=== PATIENT | male | born 1965 | race Caucasian/White ===

== ENCOUNTER 2017-12-19 23:17 | Emergency (ER) | payer BC ==
[2017-12-19] MEDS ORDERED: CYCLOBENZAPRINE HCL 10 MG TAB PO ONE (23:43)
[2017-12-19] MEDS ORDERED: predniSONE 20 MG TAB PO ONE (23:43)
[2017-12-19] MEDS ORDERED: HYDROcodone 7.5MG/APAP 325MG 1 EA TAB PO ONE (23:43)
[2017-12-19] MEDS ORDERED: KETOROLAC TROMETHAMINE INJ 30 MG/ML VIAL IM ONE (23:43)
[2017-12-19 23:48] VITALS: TEMP 98.6
--- NOTE | 2017-12-19 23:55 | ED.PDOC ---
History of Present Illness - General Time Seen by Provider: 12/19/17 23:38 Source: patient Exam Limitations: no limitations - History of Present Illness Initial Comments: The patient is a 51-year-old male presenting to the emergency room secondary to the acute onset of back pain to his lower right back approximately from L2-L4 on the right. The patient was simply bending over pulling weeds when he felt a sharp stabbing pain. He has not had low back pain problems before. This occurred approximately 5 hours prior to arrival. He is having obvious muscle spasm in the paraspinal muscles. And he is having symptoms of sciatica extending down towards his anterior thigh. No weakness. No incontinence. No loss of sensation though he feels like the front of his thighs both sleep and burning. No skin changes. No gross deformity of the back. No obvious bruising. No laceration. Timing/Duration: 4-6 hours Severity: moderate Improving Factors: nothing Worsening Factors: movement Associated Symptoms: denies symptoms Allergies/Adverse Reactions: Allergies Penicillins Allergy (Mild, Verified 12/19/17 23:38) Home Medications: Ambulatory Orders Adinqzmapncca-Rqmv-Okresokrep [Fioricet] 1 ea PO Q8H PRN #21 tab 12/20/17 Cyclobenzaprine HCl [Flexeril] 5 mg PO TID PRN #30 tab 12/20/17 predniSONE [Prednisone] 20 mg PO DAILY #7 tab 12/20/17 Review of Systems - Review of Systems Constitutional: States: no symptoms reported EENTM: States: no symptoms reported Respiratory: States: no symptoms reported Cardiology: States: no symptoms reported Gastrointestinal/Abdominal: States: no symptoms reported Genitourinary: States: no symptoms reported Musculoskeletal: States: see HPI Skin: States: no symptoms reported Neurological: States: paresthesia Endocrine: States: no symptoms reported All other Systems: No Change from Baseline Past Medical History (General) - Patient Medical History Hx Seizures: No Hx Stroke: No Hx Dementia: No Hx Asthma: No Hx of COPD: No Hx Cardiac Disorders: No Hx Congestive Heart Failure: No Hx Pacemaker: No Hx Hypertension: Yes Hx Thyroid Disease: No Hx Diabetes: No Hx Gastroesophageal Reflux: No Hx Renal Disease: No Hx Cancer: No Hx of HIV: No Hx Hepatitis C: No Hx MRSA: No - Vaccination History Hx Tetanus, Diphtheria Vaccination: No Hx Influenza Vaccination: No Hx Pneumococcal Vaccination: No Immunizations Up to Date: No - Social History Hx Tobacco Use: No Hx Chewing Tobacco Use: No Hx Alcohol Use: Yes Hx Substance Use: No Hx Substance Use Treatment: No Hx Depression: No Feels Threatened In Home Enviroment: No Feels Threatened In a Relationship: No Hx Physical Abuse: No Hx Emotional Abuse: No Hx Suspected Abuse: No - Triage Comment ED Triage Comment: Pt cooperative and c/o pain in R leg No wound Physical Exam - Physical Exam General Appearance: Alert, Anxious Eye Exam: bilateral normal Ears, Nose, Throat: hearing grossly normal, normal ENT inspection Neck: full range of motion, supple Respiratory: no respiratory distress, no accessory muscle use Cardiovascular/Chest: normal peripheral pulses, no edema, tachycardia - but the patient is in pain Peripheral Pulses: radial,right: 2+, radial,left: 2+, dorsalis pedis,right: 2+, dorsalis pedis,left: 2+ Gastrointestinal/Abdominal: non tender, soft Rectal Exam: deferred Back Exam: muscle spasm, other - see history of present illness Extremity: normal range of motion, non-tender, normal inspection, no pedal edema , no calf tenderness, normal capillary refill 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 Skin Exam: normal color Comments: Vital Signs - 24 hr 12/19/17 23:17 Temperature 98.6 F Pulse Rate [ 127 H Apical] Respiratory 20 Rate Blood Pressure 163/121 [Left Arm] O2 Sat by Pulse 98 Oximetry Progress - Progress Progress: 12/19/17 23:56 the patient is a 51-year-old male presenting with acute onset right sided low back pain with associated sciatica towards his anterior right thigh. No obvious weakness and no incontinence. There is no history of any significant trauma. The patient has obvious paraspinal muscle spasm. The patient is going to be placed on one week of oral prednisone along with Flexeril as a muscle relaxer and Fioricet as needed for additional pain control. He does need to use a heat pad. He also needs to do stretching exercises. If his pain is significantly persisting past 3-4 days then a repeat evaluation with his primary care doctor may be warranted including additional imaging as dictated by the exam. Imaging does not appear warranted at this time given his clinical presentation and history. ER warnings were given for significant worsening. Departure - Departure Clinical Impression: Acute low back pain Qualifiers: Back pain laterality: right Sciatica presence: with sciatica Sciatica laterality: sciatica of right side Qualified Code(s): M54.41 - Lumbago with sciatica, right side Disposition: Discharge to Home or Self Care Condition: Fair Instructions: DI for Low Back Pain Diet: regular diet Activity: increase activity as tolerated Referrals: Sulaiman Price MD [Primary Care Provider] - 1-2 Weeks Prescriptions: Viheohhybmzpm-Agzw-Paxrocgvmi [Fioricet] 1 ea PO Q8H PRN #21 tab PRN Reason: Pain Cyclobenzaprine HCl [Flexeril] 5 mg PO TID PRN #30 tab PRN Reason: Muscle Spasms predniSONE [Prednisone] 20 mg PO DAILY #7 tab Home Medications: Ambulatory Orders Staicujsupoqi-Pini-Nuhzlkbxuo [Fioricet] 1 ea PO Q8H PRN #21 tab 12/20/17 Cyclobenzaprine HCl [Flexeril] 5 mg PO TID PRN #30 tab 12/20/17 predniSONE [Prednisone] 20 mg PO DAILY #7 tab 12/20/17 Additional Instructions: the patient is a 51-year-old male presenting with acute onset right sided low back pain with associated sciatica towards his anterior right thigh. No obvious weakness and no incontinence. There is no history of any significant trauma. The patient has obvious paraspinal muscle spasm. The patient is going to be placed on one week of oral prednisone along with Flexeril as a muscle relaxer and Fioricet as needed for additional pain control. He does need to use a heat pad. He also needs to do stretching exercises. If his pain is significantly persisting past 3-4 days then a repeat evaluation with his primary care doctor may be warranted including additional imaging as dictated by the exam. Imaging does not appear warranted at this time given his clinical presentation and history. ER warnings were given for significant worsening. The patient's blood pressure and pulse are elevated here today but are both consistent with significant discomfort. These do need to be followed with his primary care doctor to make sure they normalize with resolution of his pain over time.
[2017-12-20 00:18] VITALS: BP 165/117; O2SAT 100
== END 2017-12-20 00:15 | disposition home or self-care (01) ==
LOC: ER 23:17
DX: M54.41 Lumbago with sciatica, right side (principal); I10 Essential (primary) hypertension
CPT/HCPCS: J1885; J7512

== ENCOUNTER 2018-05-30 04:18 | Emergency (ER) | payer BC ==
[2018-05-30 04:45] VITALS: BP 162/88; TEMP 97.8; O2SAT 99
[2018-05-30] MEDS ORDERED: ACETAMINOPHEN W/COD #3 TAB (ER Disp) PO ONE (04:58)
--- NOTE | 2018-05-30 04:58 | ED.PDOC ---
History of Present Illness - General Chief Complaint: Back Pain or Injury Stated Complaint: chronic back pain Time Seen by Provider: 05/30/18 04:45 Source: patient Exam Limitations: no limitations - History of Present Illness Initial Comments: Patient is concerned he is withdrawing from running out of his Lortab & is wanting me to give him some. Timing/Duration: 24 hours Severity: moderate Improving Factors: nothing Worsening Factors: nothing Associated Symptoms: other - chronic back pain Allergies/Adverse Reactions: Allergies Penicillins Allergy (Mild, Verified 12/19/17 23:38) Home Medications: Ambulatory Orders Wwuzloilwnnnm-Ugxo-Chszhlriwi [Fioricet] 1 ea PO Q8H PRN #21 tab 12/20/17 Cyclobenzaprine HCl [Flexeril] 5 mg PO TID PRN #30 tab 12/20/17 predniSONE [Prednisone] 20 mg PO DAILY #7 tab 12/20/17 Review of Systems - Review of Systems Constitutional: States: no symptoms reported EENTM: States: no symptoms reported Respiratory: States: no symptoms reported Cardiology: States: no symptoms reported Gastrointestinal/Abdominal: States: no symptoms reported Genitourinary: States: no symptoms reported Musculoskeletal: States: back pain Skin: States: no symptoms reported Neurological: States: anxiety Past Medical History (General) - Patient Medical History Hx Seizures: No Hx Stroke: No Hx Dementia: No Hx Asthma: No Hx of COPD: No Hx Cardiac Disorders: No Hx Congestive Heart Failure: Yes Hx Pacemaker: No Hx Hypertension: Yes Hx Thyroid Disease: No Hx Diabetes: No Hx Gastroesophageal Reflux: No Hx Renal Disease: No Hx Cancer: No Hx of HIV: No Hx Hepatitis C: No Hx MRSA: No - Vaccination History Hx Tetanus, Diphtheria Vaccination: No Hx Influenza Vaccination: No Hx Pneumococcal Vaccination: No - Social History Hx Tobacco Use: No Hx Chewing Tobacco Use: No Hx Alcohol Use: Yes - occ Hx Substance Use: No Hx Substance Use Treatment: No Hx Depression: No Hx Physical Abuse: No Hx Emotional Abuse: No Hx Suspected Abuse: No - Triage Comment ED Triage Comment: PT reports he has chronic back for which he takes Rx pain meds. He took his last doses yesterday morning and now having withdrawals. He stated he needs something to help hime get some relief. Pt concerned about numbness to his lower extremeties. Report he has a herniated disc. Took his last hydrocodone yesterd morning about 10a.m. Unable to get Rx filled until next week. Family Medical History - Family History Mother Living Status: Cause of : Cancer Physical Exam - Physical Exam General Appearance: Alert, Anxious, No apparent distress Ears, Nose, Throat: hearing grossly normal Neck: supple, normal inspection Respiratory: no respiratory distress, no accessory muscle use Cardiovascular/Chest: tachycardia Extremity: other - no tremor Neurologic: alert, oriented x 3 Skin Exam: normal color, warm/dry Departure - Departure Clinical Impression: Withdrawal complaint, Chronic pain Time of Disposition: 04:56 Disposition: Discharge to Home or Self Care Condition: Fair Departure Forms: ED Discharge - Pt. Copy, Patient Portal Self Enrollment Instructions: DI for Low Back Pain, Chronic Pain (DC), Prescription Drug Abuse (DC) Referrals: Gary Velasquez MD [Primary Care Provider] - 05/31/18 Home Medications: Ambulatory Orders Zirzxstqvhdxd-Lrpo-Spbijugmlo [Fioricet] 1 ea PO Q8H PRN #21 tab 12/20/17 Cyclobenzaprine HCl [Flexeril] 5 mg PO TID PRN #30 tab 12/20/17 predniSONE [Prednisone] 20 mg PO DAILY #7 tab 12/20/17
== END 2018-05-30 05:11 | disposition home or self-care (01) ==
LOC: ER 04:18
DX: F11.23 Opioid dependence with withdrawal (principal); G89.29 Other chronic pain; M54.5 Low back pain; I50.9 Heart failure, unspecified; I11.0 Hypertensive heart disease with heart failure; Z79.899 Other long term (current) drug therapy

== ENCOUNTER 2018-06-23 20:52 | Emergency (ER) | payer BC ==
[2018-06-23 21:15] VITALS: TEMP 97.3
--- NOTE | 2018-06-23 21:21 | ED.PDOC ---
History of Present Illness - General Chief Complaint: Back Pain or Injury Stated Complaint: back pain Time Seen by Provider: 06/23/18 21:18 Source: patient Exam Limitations: no limitations - History of Present Illness Initial Comments: Pt has chronic back pain. He was fired by his pain doctor and has been out of [employer] 3-4 days Timing/Duration: other - 48 hrs Severity: severe Improving Factors: nothing Worsening Factors: nothing Associated Symptoms: nausea/vomiting, weakness Allergies/Adverse Reactions: Allergies Penicillins Allergy (Mild, Verified 12/19/17 23:38) Home Medications: Ambulatory Orders Rlgdrrirhelov-Bieb-Ocxmwmfjpy [Fioricet] 1 ea PO Q8H PRN #21 tab 12/20/17 Cyclobenzaprine HCl [Flexeril] 5 mg PO TID PRN #30 tab 12/20/17 predniSONE [Prednisone] 20 mg PO DAILY #7 tab 12/20/17 Clonidine HCl 0.1 mg TD TID #15 ml 06/23/18 Gabapentin 300 mg PO TID #30 cap 06/23/18 Hydroxyzine HCl 50 mg PO BEDTIME PRN #20 tab 06/23/18 Tramadol HCl 50 mg PO Q6HR PRN #15 tab 06/23/18 Review of Systems - Review of Systems Constitutional: States: malaise, weakness EENTM: States: no symptoms reported Respiratory: States: no symptoms reported Cardiology: States: no symptoms reported Gastrointestinal/Abdominal: States: abdominal pain, diarrhea, nausea Genitourinary: States: no symptoms reported Skin: States: no symptoms reported Neurological: States: anxiety, tremors, weakness Endocrine: States: no symptoms reported Hematologic/Lymphatic: States: no symptoms reported Past Medical History (General) - Patient Medical History Hx Seizures: No Hx Stroke: No Hx Dementia: No Hx Asthma: No Hx of COPD: No Hx Cardiac Disorders: No Hx Congestive Heart Failure: Yes Hx Pacemaker: No Hx Hypertension: Yes Hx Thyroid Disease: No Hx Diabetes: Yes Hx Gastroesophageal Reflux: No Hx Renal Disease: No Hx Cancer: No Hx of HIV: No Hx Hepatitis C: No Hx MRSA: No Surgical History: no surgical history - Vaccination History Hx Tetanus, Diphtheria Vaccination: No Hx Influenza Vaccination: No Hx Pneumococcal Vaccination: No - Social History Hx Tobacco Use: No Hx Chewing Tobacco Use: No Hx Alcohol Use: Yes - beers Hx Substance Use: Yes - Rx narcotics Hx Substance Use Treatment: Yes Hx Depression: Yes Hx Physical Abuse: No Hx Emotional Abuse: No Hx Suspected Abuse: No - Triage Comment ED Triage Comment: Pt reports having back pain, chronic. Pt also stated he is having diarrhea. Pt confesses he is having withdrawals. Pt PCP stopped his pain medications and now he feels he is withdrawing. Pt anxious and crying, "I don't know what to do. I can get comfortable, I can't sleep". Family Medical History - Family History Mother Living Status: Cause of : Cancer Physical Exam - Physical Exam General Appearance: Agitated, Alert, Obvious distress Eye Exam: bilateral normal Ears, Nose, Throat: hearing grossly normal, normal ENT inspection, normal pharynx Neck: full range of motion, supple Respiratory: chest non-tender, lungs clear, normal breath sounds, no respiratory distress Cardiovascular/Chest: normal peripheral pulses, no edema, tachycardia Gastrointestinal/Abdominal: normal bowel sounds, non tender, soft Back Exam: normal inspection, no CVA tenderness, decreased range of motion Extremity: normal range of motion, non-tender, normal inspection Neurologic: no motor/sensory deficits, alert, normal mood/affect, oriented x 3 Skin Exam: normal color, warm/dry Lymphatic: no adenopathy Departure - Departure Clinical Impression: Narcotic dependence Chronic back pain Qualifiers: Back pain location: low back pain Back pain laterality: bilateral Sciatica presence: without sciatica Qualified Code(s): M54.5 - Low back pain; G89.29 - Other chronic pain; G89.29 - Other chronic pain Disposition: Discharge to Home or Self Care Condition: Good Departure Forms: ED Discharge - Pt. Copy, Patient Portal Self Enrollment Referrals: Gary Velasquez MD [Primary Care Provider] - 1-2 Weeks Prescriptions: Tramadol HCl 50 mg PO Q6HR PRN #15 tab PRN Reason: Pain Clonidine HCl 0.1 mg TD TID #15 ml Gabapentin 300 mg PO TID #30 cap Hydroxyzine HCl 50 mg PO BEDTIME PRN #20 tab PRN Reason: Insomnia Home Medications: Ambulatory Orders Ftwdlwdkutnph-Usqt-Zsfgfnjbbu [Fioricet] 1 ea PO Q8H PRN #21 tab 12/20/17 Cyclobenzaprine HCl [Flexeril] 5 mg PO TID PRN #30 tab 12/20/17 predniSONE [Prednisone] 20 mg PO DAILY #7 tab 12/20/17 Clonidine HCl 0.1 mg TD TID #15 ml 06/23/18 Gabapentin 300 mg PO TID #30 cap 06/23/18 Hydroxyzine HCl 50 mg PO BEDTIME PRN #20 tab 06/23/18 Tramadol HCl 50 mg PO Q6HR PRN #15 tab 06/23/18
[2018-06-23] MEDS ORDERED: HYDROcodone 10MG/APAP 325MG 1 EA TAB PO ONE (21:34)
[2018-06-23] MEDS ORDERED: hydrOXYzine HCl 25 MG TAB PO ONE (21:46)
[2018-06-23 22:01] VITALS: BP 155/91; O2SAT 100
== END 2018-06-23 22:02 | disposition home or self-care (01) ==
LOC: ER 20:52
DX: M54.5 Low back pain (principal); G89.29 Other chronic pain; F11.20 Opioid dependence, uncomplicated; R19.7 Diarrhea, unspecified; F32.9 Major depressive disorder, single episode, unspecified; E11.9 Type 2 diabetes mellitus without complications; I11.0 Hypertensive heart disease with heart failure; I50.9 Heart failure, unspecified; Z88.0 Allergy status to penicillin

== ENCOUNTER → 2018-10-04 | Outpatient (CLI) | payer BC | LOC: GMAH 10:55 | PROVIDERS: ATTEND Family Medicine | DX: F52.21 Male erectile disorder (principal) ==

== ENCOUNTER → 2019-04-05 | Outpatient (CLI) | payer BC | LOC: GMAH 10:33 | PROVIDERS: ATTEND Family Medicine | DX: E29.1 Testicular hypofunction (principal) ==

== ENCOUNTER → 2019-05-16 | Outpatient (CLI) | payer BC | LOC: GMA MATASK 14:09 | PROVIDERS: ATTEND Family Medicine | DX: E29.1 Testicular hypofunction (principal) ==

== ENCOUNTER → 2019-09-01 | Outpatient (CLI) | payer BC ==
--- NOTE | 2019-09-01 13:38 | MRI ---
EXAM DESCRIPTION: Hip,Left CLINICAL HISTORY: PAIN IN LEFT HIP COMPARISON: None Available. TECHNIQUE: MRI of the left hip is performed according to our usual protocol with multiplanar multi sequence imaging. No intravenous contrast. FINDINGS: Bones and joints: Moderate to severe left hip osteoarthrosis with subcortical cystic changes and bulky osteophyte formation . Asymmetric increase left femoral head subcortical bone marrow edema (when compared to the right femoral head) with associated more linear low T1 line (Series 301 image eight) consistent with small nondisplaced subchondral fracture. There is full-thickness cartilage loss along the left hip articular weightbearing surface. Partially imaged moderate right hip osteoarthrosis with degenerative tearing of the acetabular labrum. Labrum: Severe diffuse degenerative tearing of the acetabular labrum, more pronounced along the anterior and superior labrum. Exophytic cystic structure adjacent to the degenerated chondral labral complex measures 1.6 cm and may represent a complicated para labral cysts (containing low signal mineralization). There is associated adjacent edema/joint capsule inflammation. Tendons and ligaments: The gluteus medius and minimus tendons and their attachment sites onto the greater trochanter facets are intact. The proximal common hamstring tendons are intact. Soft tissues: No significant trochanteric or iliopsoas bursitis. IMPRESSION: 1. Left femoral head small subchondral fracture. 2. Moderate to severe left hip osteoarthrosis with areas of full-thickness cartilage loss. 3. 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 4. Partially imaged moderate right hip osteoarthrosis and degenerative right acetabulum labral tears. Electronically signed by: Nile Phillip DO 09/01/2019 1:37 PM [employer]
== END ==
LOC: MRI 10:01
PROVIDERS: ATTEND Family Medicine
DX: S72.092A Other fracture of head and neck of left femur, initial encounter for closed fracture (principal); S73.192A Other sprain of left hip, initial encounter; S73.191A Other sprain of right hip, initial encounter; M16.12 Unilateral primary osteoarthritis, left hip; M16.11 Unilateral primary osteoarthritis, right hip; M71.352 Other bursal cyst, left hip; R60.0 Localized edema

== ENCOUNTER → 2020-06-18 | Outpatient (CLI) | payer OTHER | LOC: GMA MATASK 16:53 | PROVIDERS: ATTEND Family Medicine | DX: Z00.00 Encounter for general adult medical examination without abnormal findings (principal); E11.9 Type 2 diabetes mellitus without complications ==

== ENCOUNTER 2020-08-15 10:19 | Inpatient (IN) | payer OTHER ==
[2020-08-15] MEDS ORDERED: SODIUM CHLORIDE 0.9% 1000ML 1,000 ML IVS ONE (10:57)
[2020-08-15] MEDS ORDERED: ASPIRIN (CHEWABLE) 81 MG TAB PO ONE (10:57)
--- NOTE | 2020-08-15 11:02 | ED.PDOC ---
History of Present Illness - General Chief Complaint: Respiratory Problem Stated Complaint: weakness, difficulty breathing Time Seen by Provider: 08/15/20 10:53 - History of Present Illness Initial Comments: 54 yo M PMH HTN 'Borderline Diabetes' and COVID+ 8 days ago presents to ED c/o worsening cough sob chest pain since diagnosis. Denies fever admits cough sob denies recent travel. Denies fever chills nausea vomiting admits diarrhea no blood admits chest pain heaviness sob denies diaphoresis no change in diet rest or bladder admits drinking denies smoking has PMD for follow up no other c/o today. PPE worn-N95 surgical mask with attached face shield over N95 gloves and face shield over that Allergies/Adverse Reactions: Allergies Penicillins Allergy (Mild, Verified 12/19/17 23:38) Home Medications: Ambulatory Orders Icxunhapytmol-Ansa-Thudzxtewm [Fioricet] 1 ea PO Q8H PRN #21 tab 12/20/17 Cyclobenzaprine HCl [Flexeril] 5 mg PO TID PRN #30 tab 12/20/17 predniSONE [Prednisone] 20 mg PO DAILY #7 tab 12/20/17 Clonidine [Clonidine HCl] 0.1 mg TD TID #15 ml 06/23/18 Gabapentin 300 mg PO TID #30 cap 06/23/18 Hydroxyzine HCl 50 mg PO BEDTIME PRN #20 tab 06/23/18 Tramadol HCl 50 mg PO Q6HR PRN #15 tab 06/23/18 Review of Systems - Review of Systems Constitutional: States: see HPI EENTM: States: see HPI Respiratory: States: see HPI Cardiology: States: see HPI Gastrointestinal/Abdominal: States: see HPI Genitourinary: States: see HPI Musculoskeletal: States: see HPI Skin: States: see HPI Neurological: States: see HPI Endocrine: States: see HPI All other Systems: Reviewed and Negative Past Medical History (General) - Patient Medical History Hx Seizures: No Hx Stroke: No Hx Dementia: No Hx Asthma: No Hx of COPD: No Hx Cardiac Disorders: No Hx Congestive Heart Failure: No Hx Pacemaker: No Hx Hypertension: Yes Hx Thyroid Disease: No Hx Diabetes: No Hx Gastroesophageal Reflux: No Hx Renal Disease: No Hx Cancer: No Hx of HIV: No Hx Hepatitis C: No Hx MRSA: No - Vaccination History Hx Tetanus, Diphtheria Vaccination: No Hx Influenza Vaccination: No Hx Pneumococcal Vaccination: No - Social History Hx Tobacco Use: No Hx Chewing Tobacco Use: No Hx Alcohol Use: Yes - beers Hx Substance Use: Yes - Rx narcotics Hx Substance Use Treatment: Yes Hx Depression: Yes Hx Physical Abuse: No Hx Emotional Abuse: No Hx Suspected Abuse: No Family Medical History - Family History Mother Living Status: Cause of : Cancer Physical Exam - Physical Exam General Appearance: No apparent distress Eye Exam: bilateral normal Ears, Nose, Throat: normal ENT inspection Neck: full range of motion Respiratory: no respiratory distress Cardiovascular/Chest: regular rate, rhythm, tachycardia Gastrointestinal/Abdominal: non tender, soft Rectal Exam: deferred Extremity: normal range of motion Neurologic: no motor/sensory deficits Skin Exam: normal color Progress - Progress Progress: 08/15/20 11:03 A/P-Chest Pain SOB COVID+ Cough Tachycardia Dehydration-iv asa central office repairer pulse ox ekg cxr cbc cmp trop cta chest reassess EKG-non specific TW changes Sinus Tachycardia 125bpm Pt. finished course of steroids and antibiotics 08/15/20 12:37 Laboratory Tests 08/15/20 08/15/20 08/15/20 11:20 11:20 11:20 WBC 11.1 H RBC 6.30 H Hgb 18.4 H Hct 52.5 H MCV 83.3 MCH 29.2 MCHC 35.1 RDW 14.1 Plt Count 190 MPV 8.9 Absolute Neuts (auto) 8.30 H Absolute Lymphs (auto) 1.60 Absolute Monos (auto) 1.10 H Absolute Eos (auto) 0.00 Absolute Basos (auto) 0.10 Neutrophils % 74.4 Lymphocytes % 14.4 L Monocytes % 9.8 H Eosinophils % 0.4 L Basophils % 1.0 Sodium 126 L Potassium 4.2 Chloride 88 L Carbon Dioxide 21 Anion Gap 21.2 H BUN 37 H Creatinine 1.62 H BUN/Creatinine Ratio 22.8 H Random Glucose 370 H Serum Osmolality 277.1 Calcium 9.6 Total Bilirubin 1.2 H AST 34 ALT 44 Alkaline Phosphatase 71 Troponin I 0.02 Serum Total Protein 7.1 Albumin 4.2 Globulin 2.9 Albumin/Globulin Ratio 1.4 Urine Color Urine Appearance Urine pH Ur Specific [place] Urine Protein Urine Glucose (UA) Urine Ketones Urine Blood Urine Nitrite Urine Bilirubin Urine Urobilinogen Ur Leukocyte Esterase Urine RBC Urine WBC Ur Epithelial Cells Urine Bacteria 08/15/20 11:20 WBC RBC Hgb Hct MCV MCH MCHC RDW Plt Count MPV Absolute Neuts (auto) Absolute Lymphs (auto) Absolute Monos (auto) Absolute Eos (auto) Absolute Basos (auto) Neutrophils % Lymphocytes % Monocytes % Eosinophils % Basophils % Sodium Potassium Chloride Carbon Dioxide Anion Gap BUN Creatinine BUN/Creatinine Ratio Random Glucose Serum Osmolality Calcium Total Bilirubin AST ALT Alkaline Phosphatase Troponin I Serum Total Protein Albumin Globulin Albumin/Globulin Ratio Urine Color Yellow Urine Appearance Clear Urine pH 5.5 Ur Specific [place] 1.015 Urine Protein 100 H Urine Glucose (UA) 500 H Urine Ketones Negative Urine Blood Small H Urine Nitrite Negative Urine Bilirubin Negative Urine Urobilinogen 0.2 Ur Leukocyte Esterase Negative Urine RBC 0 Urine WBC 0-1 Ur Epithelial Cells 1-3 Urine Bacteria 0 Add Dx-Hyponatremia Acute Renal Failure Hyperglycemia Pneumonia EXAM DESCRIPTION: CTA Chest CLINICAL HISTORY: r/ PE chest pain, shortness of breath COMPARISON: None. TECHNIQUE: Postcontrast CT images of the chest are obtained using pulmonary embolism imaging protocol. Three-D MIP reconstructed images of the arterial vasculature are obtained. Coronal and sagittal reconstructed images of the also provided. This exam was performed according to our departmental dose-optimization program, which includes automated exposure control, adjustment of the mA and/or kV according to patient size and/or use of iterative reconstruction technique . FINDINGS: Heart is mildly enlarged. Coronary arteries show mild calcifications. Thoracic aorta shows no aneurysmal dilatation or dissection. No filling defects or emboli are seen in the pulmonary arteries. No pleural or pericardial effusion. Heterogeneous decreased attenuation of the visualized liver suggest diffuse fatty infiltration. Lungs are normally aerated. Mild areas of groundglass attenuation and alveolar infiltrates are seen predominantly in the right lower lobe and to a lesser degree posterior mid left upper lobe. Mild areas of groundglass attenuation in the lungs bilaterally. Breathing motion artifact somewhat limits detailed evaluation. Osseous structures show no aggressive bony lesions. Spond ylitic changes of the spine are seen. Bridging marginal endplate osteophytes over multiple level suggests DISH. IMPRESSION: No CT evidence of pulmonary embolism. Mild bilateral pulmonary infiltrates are seen compatible with pneumonia. Commonly reported imaging features of COVID-19 pneumonia are present. Other processes such as influenza pneumonia and organizing pneumonia, as can be seen with drug toxicity and connective tissue disease, can cause similar imaging pattern. [PneTyp] Diffuse fatty infiltration of the liver seen. Electronically signed by: Edmond Dietrich MD 08/15/2020 12:38 PM [employer] 08/15/20 13:00 Spoke to Christopher Reid accepts admission Departure - Departure Clinical Impression: Pneumonia due to COVID-19 virus, SOB (shortness of breath), Cough, Hyponatremia, Hyperglycemia Chest pain Qualifiers: Chest pain type: unspecified Qualified Code(s): R07.9 - Chest pain, unspecified Time of Disposition: 13:04 Disposition: Admit Patient Condition: Fair Departure Forms: ED Discharge - Pt. Copy, Patient Portal Self Enrollment Referrals: Reinier De Luna MD [Primary Care Provider] - 1-2 Days Home Medications: Ambulatory Orders Pwwdukcnjgzkr-Aimq-Uenizoaorf [Fioricet] 1 ea PO Q8H PRN #21 tab 12/20/17 Cyclobenzaprine HCl [Flexeril] 5 mg PO TID PRN #30 tab 12/20/17 predniSONE [Prednisone] 20 mg PO DAILY #7 tab 12/20/17 Clonidine [Clonidine HCl] 0.1 mg TD TID #15 ml 06/23/18 Gabapentin 300 mg PO TID #30 cap 06/23/18 Hydroxyzine HCl 50 mg PO BEDTIME PRN #20 tab 06/23/18 Tramadol HCl 50 mg PO Q6HR PRN #15 tab 06/23/18 Decision To Admit - Decistion To Admit Decision to Admit Reason: Admit from ER Decision to Admit Date: 08/15/20 Decision to Admit Time: 13:05
--- NOTE | 2020-08-15 12:40 | CT ---
EXAM DESCRIPTION: CTA Chest CLINICAL HISTORY: r/ PE chest pain, shortness of breath COMPARISON: None. TECHNIQUE: Postcontrast CT images of the chest are obtained using pulmonary embolism imaging protocol. Three-D MIP reconstructed images of the arterial vasculature are obtained. Coronal and sagittal reconstructed images of the also provided. This exam was performed according to our departmental dose-optimization program, which includes automated exposure control, adjustment of the mA and/or kV according to patient size and/or use of iterative reconstruction technique . FINDINGS: Heart is mildly enlarged. Coronary arteries show mild calcifications. Thoracic aorta shows no aneurysmal dilatation or dissection. No filling defects or emboli are seen in the pulmonary arteries. No pleural or pericardial effusion. Heterogeneous decreased attenuation of the visualized liver suggest diffuse fatty infiltration. Lungs are normally aerated. Mild areas of groundglass attenuation and alveolar infiltrates are seen predominantly in the right lower lobe and to a lesser degree posterior mid left upper lobe. Mild areas of groundglass attenuation in the lungs bilaterally. Breathing motion artifact somewhat limits detailed evaluation. Osseous structures show no aggressive bony lesions. Spondylitic changes of the spine are seen. Bridging marginal endplate osteophytes over multiple level suggests DISH. IMPRESSION: No CT evidence of pulmonary embolism. Mild bilateral pulmonary infiltrates are seen compatible with pneumonia. Commonly reported imaging features of COVID-19 pneumonia are present. Other processes such as influenza pneumonia and organizing pneumonia, as can be seen with drug toxicity and connective tissue disease, can cause similar imaging pattern. [PneTyp] Diffuse fatty infiltration of the liver seen. Electronically signed by: Edmond Dietrich MD 08/15/2020 12:38 PM [facility]
[2020-08-15] MEDS ORDERED: levoFLOXacin 750MG IV 750 MG in PREMIX BAG 1 BAG IVPB ONE (12:42)
[2020-08-15] MEDS ORDERED: VANCOMYCIN HCL INJ 1,000 MG in SODIUM CHLORIDE 0.9% 250ML 250 ML IVPB ONE (12:42)
--- NOTE | 2020-08-15 12:51 | RAD ---
EXAM DESCRIPTION: Chest,1 View CLINICAL HISTORY: chest pain cough sob COMPARISON: CT chest same day IMPRESSION: Single AP portable upright view of the chest shows cardiac silhouette and pulmonary vasculature to be within normal limits. Lungs are normally aerated. Airspace infiltrates are seen in the right lower lobe and left mid to lower chest compatible with bilateral pneumonia. Commonly reported imaging features of COVID-19 pneumonia are present. Other processes such as influenza pneumonia and organizing pneumonia, as can be seen with drug toxicity and connective tissue disease, can cause similar imaging pattern. No obvious pleural effusion or pneumothorax is seen. Electronically signed by: Edmond Dietrich MD 08/15/2020 12:49 PM [facility]
--- NOTE | 2020-08-15 14:57 | HP ---
SUPERVISING PHYSICIAN: Khoi Barrios MD CHIEF COMPLAINT: Increasing shortness of breath, weakness. HISTORY OF PRESENT ILLNESS: Mr. Ferguson is a 54 year-old male patient with a history of diabetes and recent diagnosis of Covid-19 infection on August 07 at [facility]. He complained in the Emergency Department of worsening cough, some mild shortness of breath, chest pain. He denied any fevers, just generalized weakness. His laboratory studies showed a white count of 11,100 but no left shift. His lymphocytes counts were low with coagulation studies showing normal D-dimer. Chemistries show mild hyponatremia at 126 with creatinine 1.62. Total bilirubin was slightly elevated at 1.2. BNP less than 15, C-reactive protein a little elevated at 3.3. Urinalysis showed 100 protein, 500 glucose, small amount of blood. He had blood cultures drawn and was started on Levaquin. Review of his records show that he did finish a Z-Michael as well as treated with Decadron as an outpatient. Hi stable vital signs on admission showed he was 91% on room air, he was showing to be hypertensive at 152/102 and tachycardic at 122. Temperature 98.1. Given his recent infection with Covid and increasing shortness of breath and some hypoxia on room air, a CTA of his chest was done in the Emergency Room and per radiology interpretation showed no CT evidence of pulmonary embolus but there was mild bilateral pulmonary infiltrates compatible with pneumonia. He is now going to be admitted for further treatment of Covid pneumonia having failed outpatient management initially. He is admitted in stable condition. PAST MEDICAL HISTORY: 1. Hypertension. 2. Gout. 3. Chronic lumbar disk disease. 4. Diabetes mellitus type 2, on oral therapy. PAST SURGICAL HISTORY: 1. Left hip replacement in October of 2019. CURRENT MEDICATIONS: 1. Metformin 500 mg daily. 2. Ibuprofen 800 mg as needed. 3. Doxepin 100 mg at bedtime. 4. Atorvastatin 40 mg daily. 5. Testosterone injections, 20 mg biweekly. 6. Trazodone 100 mg at bedtime. 7. Sildenafil 100 mg as needed. 8. Lisinopril Hydrochlorothiazide 20-12.5 mg, 2 tablets daily. ALLERGIES: PENICILLINS FAMILY HISTORY: SOCIAL HISTORY: REVIEW OF SYSTEMS: CONSTITUTIONAL: General malaise, weakness, nausea, fevers, chills. HEENT: Denies headaches. vision changes, sore throat. nasal congestion, earaches. CHEST: As noted in history of present illness, increasing shortness of breath, coughing. HEART: As noted in history of present illness. Some shortness of breath, coughing. Denies palpitations or syncopal episodes. ABDOMEN: Denies nausea, vomiting, diarrhea or constipation, abdominal pain. GENITOURINARY: Denies dysuria, hematuria or polyuria. MUSCULOSKELETAL: Denies arthralgias, joint swelling. SKIN: Denies lesions, rashes, moles or unexplained changes. HEMATOLOGIC: Denies unexplained bleeding, bruising or transfusion reactions. NEUROLOGIC: Denies ataxia, seizures, vision changes or headaches, just some generalized weakness but no focal motor deficits. PHYSICAL EXAMINATION: VITAL SIGNS: Temperature 96, pulse 128, blood pressure 152/102, oxygen saturation 91% on room air. GENERAL: The patient looks to be resting comfortably, in no acute distress. He is alert. HEENT: Tympanic membranes clear bilaterally. Oropharynx pink and moist without any lesions. NECK: Supple, non-tender, full range of motion. No jugular venous distention. CHEST: Lung sounds are diminished towards the bases, no obvious rhonchi, rales, or wheezes. CARDIOVASCULAR: Regular rate and rhythm without appreciable murmurs, rubs, or gallops. Noted tachycardia on the monitor. ABDOMEN: Soft, non-tender, positive bowel sounds. EXTREMITIES: No cyanosis, clubbing, or edema. BACK: Without any CVA or vertebral tenderness. RECTAL: Exam deferred. NEUROLOGIC: Cranial nerves II through XII are grossly intact. Facial features were symmetrical. Extraocular movements normal, no nystagmus. He is alert and oriented x3. SKIN: Warm, pink and dry. LABORATORY: White count 11,000, hemoglobin 18.4, hematocrit 52.5, platelet count 190,000, differential show to be without a left shift. Initially, his coagulation studies show D-dimer less then 131. Chemistries show sodium 126, potassium 4.2, BUN 37, creatinine 1.62, osmolality 277, calcium normal at 9.6, magnesium 2.2, total bilirubin slightly elevated at 1.2. Liver functions other than that were within normal limits. He had 2 sets of troponins, 0.02, normal CK, CRP a little elevated at 3.5, normal BNP. Urinalysis showed 100 of protein with 500 glucose, small amount of blood. Otherwise, within normal limits. Blood cultures were collected and he was started on antibiotics. CT of his chest showed to be without any evidence of pulmonary embolus. There was note of mild bilateral pulmonary infiltrates compatible with pneumonia and fatty infiltrates in the liver were seen. ASSESSMENT: 1. Covid-19 pneumonia having failed recent outpatient treatment. 2. Mild polycythemia likely due to some underlying dehydration. 3. Acute renal insufficiency likely prerenal azotemia, some dehydration with patient showing to be mildly tachycardiac. 4. Chest pains associated with a cough requiring further rule out of acute coronary syndrome with current EKG showing all negative and troponins on admission. 5. History of hypertension showing to be uncontrolled. 6. History of gout. 7. Lumbar disk disease. PLAN: Mr. Ferguson is going to be admitted for treatment of Covid pneumonia. Given that he did complete a treatment at home of Decadron and azithromycin, we will go ahead and start him on Levaquin. We will hold off on Remdesivir at this point as he did test positive approximately 8 days previously. He will be on Protonix as well as Lovenox. He did get some fluids in the Emergency Room but will reevaluate labs in the morning. He will be on insulin sliding scale per protocol. I anticipate his length of stay to be at least 2 or 3 days. Until we can transition patient to outpatient management, we will continue to monitor and treat as needed. #[id number] [facility]
[2020-08-15] MEDS ORDERED: ONDANSETRON INJ 4 MG/2 ML VIAL IV PRN (16:02)
[2020-08-15] MEDS ORDERED: TEMAZEPAM 15 MG CAP PO PRN (16:02)
[2020-08-15] MEDS ORDERED: ALBUTEROL SULFATE 2.5 MG/3 ML VIAL NEB PRN (16:02)
[2020-08-15] MEDS ORDERED: MAGNESIUM HYDROXIDE 30 ML UD PO PRN (16:02)
[2020-08-15] MEDS ORDERED: SODIUM CHLORIDE 0.9% (FLUSH) 10 ML SYG IV PRN (16:02)
[2020-08-15] MEDS ORDERED: ACETAMINOPHEN SUPPOSITORY 650 MG PR PRN (16:02)
[2020-08-15] MEDS ORDERED: ALBUTEROL INHALER 64 PUFF/8GM INH ONE (16:27)
[2020-08-15] MEDS ORDERED: IV SET AND CAP CHANGE INJ INJ SCH (16:30)
[2020-08-15] MEDS ORDERED: ALBUTEROL INHALER 64 PUFF/8GM INH PRN (16:41)
[2020-08-15] MEDS ORDERED: GLUCAGON INJ 1 MG VIAL SUBCU PRN (16:50)
[2020-08-15] MEDS ORDERED: DEXTROSE 50% 25 GM/50 ML SYG IV PRN (16:50)
[2020-08-15] MEDS ORDERED: INSULIN LISPRO 100 UNITS/ML PEN SUBCU ONE (17:12)
[2020-08-15] MEDS ORDERED: LISINOPRIL 10 MG TAB PO ONE (17:57)
[2020-08-15] MEDS ORDERED: guaiFENesin ER TAB 600 MG TAB ONE (19:11)
[2020-08-15] MEDS ORDERED: ENOXAPARIN SODIUM 40 MG/0.4 ML SYG SUBCU ONE (19:11)
[2020-08-15] MEDS ORDERED: traZODone HCL 100 MG TAB PO ONE (19:41)
[2020-08-15] MEDS ORDERED: IPRATROPIUM/ALBUTEROL 3 ML VIAL INH SCH (20:00)
[2020-08-15] MEDS: traZODone HCL 100 MG TAB PO SCH (20:17)
[2020-08-15] MEDS: DOXEPIN HCL 100 MG PO SCH (20:17)
[2020-08-15] MEDS: guaiFENesin ER TAB 600 MG TAB PO SCH (20:17)
[2020-08-15] MEDS: INSULIN LISPRO 100 UNITS/ML PEN SUBCU SCH (20:17)
[2020-08-15] MEDS: ENOXAPARIN SODIUM 40 MG/0.4 ML SYG SUBCU SCH (20:17)
[2020-08-15] MEDS: ALBUTEROL INHALER 64 PUFF/8GM INH SCH (20:52)
[2020-08-16] MEDS ORDERED: PANTOPRAZOLE SODIUM IV 40 MG VIAL ONE (03:12)
[2020-08-16] MEDS ORDERED: PANTOPRAZOLE SODIUM IV 40 MG VIAL IV SCH (06:30)
[2020-08-16] MEDS: INSULIN LISPRO 100 UNITS/ML PEN SUBCU SCH ×4 (08:10→20:48)
[2020-08-16] MEDS: ALBUTEROL INHALER 64 PUFF/8GM INH SCH ×4 (08:12→21:02)
[2020-08-16] MEDS ORDERED: NON-FORMULARY MEDICATION 1 EA MIS (Lisinopril & Hydrochlorothiazi [Lisinopril/Hydrochlorot PO SCH (09:00)
[2020-08-16] MEDS ORDERED: NON-FORMULARY MEDICATION 1 EA MIS (Atorvastatin Calcium [Atorvastatin Calcium] 40 MG) PO SCH (09:00)
--- NOTE | 2020-08-16 09:08 | RAD ---
EXAM: AP CHEST RADIOGRAPH CLINICAL INDICATION: COVID pneumonia. COMPARISON: Compared to the chest radiograph of 08/15/2020 performed at 1156 hours. FINDINGS: Resolution of right basilar consolidation since the comparison chest radiograph. Cardiac size and pulmonary vasculature are normal. Lungs are clear. No pleural effusions. No pneumothorax, pneumomediastinum or free peritoneal gas. No hilar or mediastinal lymphadenopathy. No mediastinal widening. Bones are intact on this single view. IMPRESSION: Normal portable AP chest radiograph. Electronically signed by: Victor Manuel Saldana MD 08/16/2020 9:06 AM [facility]
[2020-08-16] MEDS ORDERED: hydroCHLOROthiazide 12.5 MG CAP ONE ×2 (09:21→10:47)
[2020-08-16] MEDS ORDERED: ATORVASTATIN 20 MG TAB PO ONE (09:22)
[2020-08-16] MEDS: BIFIDOBACTERIUM INFANTIS 4 MG CAP PO SCH (09:41)
[2020-08-16] MEDS: guaiFENesin ER TAB 600 MG TAB PO SCH ×2 (09:41→20:33)
[2020-08-16] MEDS: levoFLOXacin 750MG IV 750 MG in PREMIX BAG 1 BAG IVPB SCH (09:41)
[2020-08-16] MEDS ORDERED: LISINOPRIL 10 MG TAB ONE (10:48)
[2020-08-16] MEDS ORDERED: metFORMIN XR 500 MG TAB.ER.24 PO ONE (14:29)
--- NOTE | 2020-08-16 15:34 | PN ---
SUPERVISING PHYSICIAN: Khoi Barrios MD DATE: 08/16/20 SUBJECTIVE: The patient seems to be feeling better today. He is not quite as short of breath. I have him on fluid restrictions given his sodium is still a little low. He seems to be maintaining 02 saturations at this point with room air but ambulation is requiring a little extra. OBJECTIVE: VITAL SIGNS: Temperature 98.5, pulse 118, blood pressure 122/85, respirations 19, oxygen saturation 93% on room air. GENERAL: The patient appears to be resting comfortably and in no acute distress. CHEST: Lung sounds fairly clear, just diminished towards the bases. HEART: Regular rate and rhythm, showing tachycardic on the monitor. ABDOMEN: Soft, non-tender, positive bowel sounds. EXTREMITIES: No edema. NEUROLOGIC: He is alert and oriented x 3. LABORATORY: White count normalized at 8,100, hemoglobin 17.8, hematocrit 50.5, platelet count 193,000, differential shows to be without a left shift. Coagulation studies showed normal D-dimer. Chemistries: sodium 125 corrected to 131, glucose 351. Creatinine down to 1.43. Calcium 8.4. Magnesium 2.4. Liver showing slightly elevated bilirubin at 1.1. Urinalysis showed 100 protein, glucose, small amount of blood. MICROBIOLOGY: Blood cultures negative at 24 hours. RADIOLOGY: Repeat chest x-ray this morning per radiology interpretation is unchanged. ASSESSMENT: 1. Covid-19 pneumonia having failed recent outpatient treatment. 2. Mild polycythemia likely due to some underlying dehydration. 3. Acute renal insufficiency likely prerenal azotemia, some dehydration with patient showing to be mildly tachycardiac. 4. Chest pains associated with a cough requiring further rule out of acute coronary syndrome with current EKG showing all negative and troponins on admission. 5. History of hypertension showing to be uncontrolled. 6. History of gout. 7. Lumbar disk disease. PLAN: Will continue with current plan of care with antibiotics with Levaquin. Given that he still has a persistent low sodium, will go ahead and give him a little bit of saline but go ahead and put him on fluid restriction and watch his vital signs closely. In regard to the mild tachycardia, may need to look at putting him on a beta sergio but will hold off and monitor that closely. Hopefully will be able to transition to outpatient management starting tomorrow. Will watch his 02 saturations and see how he does with ambulation. Until then, we will continue to monitor and treat as needed. #[id number] [facility]
[2020-08-16] MEDS: metFORMIN XR 500 MG TAB.ER.24 PO SCH (17:00)
[2020-08-16] MEDS: traZODone HCL 100 MG TAB PO SCH (20:33)
[2020-08-16] MEDS: DOXEPIN HCL 100 MG PO SCH (20:34)
[2020-08-16] MEDS: ENOXAPARIN SODIUM 40 MG/0.4 ML SYG SUBCU SCH (20:34)
[2020-08-17] MEDS ORDERED: PANTOPRAZOLE SODIUM TAB 40 MG PO ONE (03:55)
[2020-08-17] MEDS: PANTOPRAZOLE SODIUM TAB 40 MG PO SCH (06:04)
[2020-08-17] MEDS: ALBUTEROL INHALER 64 PUFF/8GM INH SCH ×4 (08:00→21:09)
[2020-08-17] MEDS: INSULIN LISPRO 100 UNITS/ML PEN SUBCU SCH ×4 (08:10→20:36)
[2020-08-17] MEDS ORDERED: hydroCHLOROthiazide 12.5 MG CAP ONE (09:06)
[2020-08-17] MEDS: guaiFENesin ER TAB 600 MG TAB PO SCH ×2 (09:24→20:29)
[2020-08-17] MEDS: LISINOPRIL 10 MG TAB PO SCH (09:24)
[2020-08-17] MEDS: BIFIDOBACTERIUM INFANTIS 4 MG CAP PO SCH (09:24)
[2020-08-17] MEDS: hydroCHLOROthiazide 25 MG TAB PO SCH (09:24)
[2020-08-17] MEDS: levoFLOXacin 750MG IV 750 MG in PREMIX BAG 1 BAG IVPB SCH (09:25)
[2020-08-17] MEDS: metFORMIN XR 500 MG TAB.ER.24 PO SCH (16:55)
--- NOTE | 2020-08-17 18:53 | PN ---
SUPERVISING PHYSICIAN: Tr Barrios MD DATE: 08/17/20 SUBJECTIVE: The patient seems to be doing well. He is getting some shortness of breath with ambulation. Otherwise, he is maintaining his O2 saturations on room air at rest. His heart rate is still a little elevated, but otherwise he looks like he is making improvements. He has had no further complaints. OBJECTIVE: VITAL SIGNS: Temperature 97.5, pulse 114, blood pressure 140/82, respirations 20, oxygen saturation 95% on room air at rest. GENERAL: The patient is sitting on the side of the bed eating lunch. He looks to be in no distress. HEART: Regular rate and rhythm. ABDOMEN: Soft, nontender, positive bowel sounds. EXTREMITIES: No edema. NEUROLOGIC: He is alert and oriented x 3. LABORATORY: CBC is now within normal limits. Coagulation studies show normal D-dimer. Chemistries show sodium 126, blood sugar 378 which corrects his sodium to 132. C-reactive protein was not able to be completed as he had 4+ lipemia. Creatinine now is down to 1.33 from 1.62 on admission. Blood sugars range between 191 and 378. Magnesium 2.4, calcium 8.3. Liver functions all within normal limits. MICROBIOLOGY: Blood cultures negative at 24 hours. RADIOLOGY: No additional radiographic studies today. ASSESSMENT: 1. COVID-19 pneumonia, having failed recent outpatient treatment. 2. Acute renal insufficiency, returning to baseline levels, likely due to prerenal azotemia and some dehydration. 3. Chest pains associated with #1 with no signs of acute coronary syndrome. 4. History of hypertension, showing to be uncontrolled with tachycardia, started back on metoprolol with the patient being in poor compliance with his medication regimen. 5. History of gout. 6. History of lumbar disc disease. PLAN: Will continue with current plan of care with [place]. His sodium is being monitor with his blood sugars elevated and he has 4+ lipemia. He is back on a statin. After further visiting with him, he has not been taking his medications since he became from his as well as he has in the past. In regards to the tachycardia, I am going to start him some metoprolol tonight and monitor closely. I anticipate he will be able to transition to outpatient management tomorrow. I am not sure if he will need to go home on oxygen, but we will do an ambulation study to ensure he has that in place prior to discharge if needed. Until then, we will continue to monitor and treat as needed. #[id number] [facility]
[2020-08-17] MEDS ORDERED: METOPROLOL TARTRATE 25 MG TAB ONE (19:01)
[2020-08-17] MEDS ORDERED: ATORVASTATIN 20 MG TAB PO ONE (19:02)
[2020-08-17] MEDS ORDERED: METOPROLOL TARTRATE 25 MG TAB PO ONE (20:00)
[2020-08-17] MEDS: traZODone HCL 100 MG TAB PO SCH (20:28)
[2020-08-17] MEDS: DOXEPIN HCL 100 MG PO SCH (20:29)
[2020-08-17] MEDS: ENOXAPARIN SODIUM 40 MG/0.4 ML SYG SUBCU SCH (20:29)
[2020-08-17] MEDS ORDERED: ATORVASTATIN 20 MG TAB PO SCH (21:00)
[2020-08-18] MEDS: PANTOPRAZOLE SODIUM TAB 40 MG PO SCH (05:50)
[2020-08-18] MEDS ORDERED: METOPROLOL TARTRATE 25 MG TAB PO SCH (07:30)
[2020-08-18] MEDS: ALBUTEROL INHALER 64 PUFF/8GM INH SCH (08:00)
[2020-08-18] MEDS ORDERED: hydroCHLOROthiazide 12.5 MG CAP ONE (08:55)
[2020-08-18] MEDS ORDERED: METOPROLOL TARTRATE 25 MG TAB ONE (08:55)
--- NOTE | 2020-08-18 09:17 | RAD ---
EXAM: Chest,1 View HISTORY: COVID PNA COMPARISON: Chest 1 View AP 08/16/2020 CTA chest 08/15/2020 TECHNIQUE: Chest 1 View AP FINDINGS: Trachea midline. Heart size normal. Mild hazy right lower and left mid/lower lung field opacities. No pleural effusion or pneumothorax. IMPRESSION: Mild hazy right lower and left mid/lower lung field opacities. Electronically signed by: Iban Brenner MD 08/18/2020 9:15 AM [employer] [employer]
[2020-08-18] MEDS: guaiFENesin ER TAB 600 MG TAB PO SCH (09:36)
[2020-08-18] MEDS: BIFIDOBACTERIUM INFANTIS 4 MG CAP PO SCH (09:36)
[2020-08-18] MEDS: levoFLOXacin 750MG IV 750 MG in PREMIX BAG 1 BAG IVPB SCH (09:36)
[2020-08-18] MEDS: LISINOPRIL 10 MG TAB PO SCH (09:36)
[2020-08-18] MEDS: hydroCHLOROthiazide 25 MG TAB PO SCH (09:36)
[2020-08-18] MEDS: INSULIN LISPRO 100 UNITS/ML PEN SUBCU SCH (09:45)
[2020-08-18 09:56] VITALS: BP 108/79; TEMP 97
[2020-08-18 11:14] VITALS: O2SAT 95
--- NOTE | 2020-08-20 08:13 | DS ---
SUPERVISING PHYSICIAN: Tr Barrios MD ADMISSION DIAGNOSIS: 1. COVID-19 pneumonia having failed recent outpatient treatment. 2. Mild polycythemia likely due to some underlying dehydration. 3. Acute renal insufficiency likely prerenal azotemia, some dehydration with the patient showing to be mildly tachycardiac. 4. Chest pains associated with a cough requiring further rule out of acute coronary syndrome with current EKG showing all negative and troponins on admission. 5. History of hypertension showing to be uncontrolled. 6. History of gout. 7. Lumbar disk disease. DISCHARGE DIAGNOSIS: 1. COVID-19 pneumonia, having failed recent outpatient treatment. 2. Acute renal insufficiency, returning to baseline levels, likely due to prerenal azotemia and some dehydration. 3. Chest pains associated with #1 with no signs of acute coronary syndrome. 4. History of hypertension, showing to be uncontrolled with tachycardia, started back on metoprolol with the patient being in poor compliance with his medication regimen. 5. History of gout. 6. History of lumbar disc disease. REASON FOR HOSPITALIZATION: Mr. Ferguson is a 54 year-old male patient with a history of diabetes and recent diagnosis of COVID-19 infection on August 07 at [facility]. He complained in the Emergency Department of worsening cough, some mild shortness of breath, chest pain. He denied any fevers, just generalized weakness. His laboratory studies showed a white count of 11,100 but no left shift. His lymphocytes counts were low with coagulation studies showing normal D-dimer. Chemistries show mild hyponatremia at 126 with creatinine 1.62. Total bilirubin was slightly elevated at 1.2. BNP less than 15, C-reactive protein a little elevated at 3.3. Urinalysis showed 100 protein, 500 glucose, small amount of blood. He had blood cultures drawn and was started on Levaquin. Review of his records show that he did finish a Z-Michael as well as treated with Decadron as an outpatient. Hi stable vital signs on admission showed he was 91% on room air, he was showing to be hypertensive at 152/102 and tachycardic at 122. Temperature 98.1. Given his recent infection with COVID and increasing shortness of breath and some hypoxia on room air, a CTA of his chest was done in the Emergency Room and per radiology interpretation showed no CT evidence of pulmonary embolus but there was mild bilateral pulmonary infiltrates compatible with pneumonia. He is now going to be admitted for further treatment of COVID pneumonia having failed outpatient management initially. He is admitted in stable condition. LABORATORY: White count 6,900, hemoglobin 17.4, hematocrit 48.7, platelet count 189,000. Differential was without a left shift on discharge. D-dimer on discharge was less than 131. Fibrinogen 438, PTT normal at 23. Chemistry on discharge showed sodium 128 corrected to 131 for glucose 282. Blood sugar ranged between 191 and 304. Creatinine 1.56. Urinalysis showed 100 protein, 100 glucose, small amount of blood. MICROBIOLOGY: Blood cultures remained negative after 3 days. RADIOLOGY: CT of the chest per radiologic interpretation showed no CT evidence of pulmonary embolism. There were mild bilateral pulmonary infiltrates compatible with pneumonia. Final chest x-ray on 08/18/20 showed mild hazy right lower and left mid and lower lung field opacities. HOSPITAL COURSE: Mr. Ferguson was admitted for treatment of COVID pneumonia. He was started on Levaquin. He did have mild tachycardia which resolved with initiation of beta sergio in the form of metoprolol tartrate. He was showing good response to treatment. His kidney function was still showing some elevation, but chronically. Sodium continued to be low, but he is chronic and he also take trazodone and his blood sugars are not very well controlled. He was given albuterol treatments, aggressive pulmonary hygiene and showed good improvement. It was felt that he improved well enough to discharge home to continue with outpatient management. His vital signs on discharge showed temperature 97, pulse 109, blood pressure 108/79, respirations 16, saturation 95% on room air at rest. PLAN: Mr. Ferguson was discharged on 08/18/20 with instructions to call Dr. De Luna's office on Thursday to get a followup appointment. He was to resume a diabetic diet. He was to increase his activity as tolerated. He was to take his medications as directed. MEDICATIONS PRESCRIBED ON DISCHARGE: 1. Align 4 mg daily, #30, no refills. 2. Levaquin 750 mg daily, #7, no refills. 3. Metoprolol tartrate 25 mg twice daily, #60, no refills. 4. Guaifenesin as needed. 5. Albuterol inhaler as needed. All other medications as prior to hospitalization were continued which included: 1. Metformin 500 mg daily. 2. Ibuprofen 800 mg as needed. 3. Doxepin 100 mg at bedtime. 4. Atorvastatin 40 mg daily. 5. Testosterone injections 200 mg biweekly. 6. Trazodone 100 mg daily at bedtime. 7. Sildenafil 100 mg as needed. 8. Lisinopril/hydrochlorothiazide 2 tablets daily 20-12.5 mg. CONDITION ON DISCHARGE: Stable and improved. DISPOSITION: The patient was discharged home. #[id number] MTDD
== END 2020-08-18 11:14 | disposition home or self-care (01) | DRG 177 ==
LOC: ER 10:19 → MS 14:56 → OBSVTOIN 14:56
PROVIDERS: ADMIT Nurse Practitioner Family; ATTEND Nurse Practitioner Family
PROC: B32T1ZZ Computerized Tomography (CT Scan) of Left Pulmonary Artery using Low Osmolar Contrast (ICD-10-PCS; principal; 2020-08-15)
PROC: B32S1ZZ Computerized Tomography (CT Scan) of Right Pulmonary Artery using Low Osmolar Contrast (ICD-10-PCS; 2020-08-15)
DX: U07.1 COVID-19 (principal); J12.89 Other viral pneumonia; E87.1 Hypo-osmolality and hyponatremia; E86.0 Dehydration; R09.02 Hypoxemia; R07.9 Chest pain, unspecified; I10 Essential (primary) hypertension; M10.9 Gout, unspecified; M51.36 Other intervertebral disc degeneration, lumbar region; N28.9 Disorder of kidney and ureter, unspecified; Z91.14 Patient's other noncompliance with medication regimen; E11.9 Type 2 diabetes mellitus without complications; Z96.642 Presence of left artificial hip joint; Z79.84 Long term (current) use of oral hypoglycemic drugs; Z79.1 Long term (current) use of non-steroidal anti-inflammatories (NSAID); Z88.0 Allergy status to penicillin; Z79.52 Long term (current) use of systemic steroids; Z79.891 Long term (current) use of opiate analgesic; Z79.899 Other long term (current) drug therapy